=== PATIENT | male | born 1990 | race Caucasian/White ===

== ENCOUNTER 2018-02-21 21:11 | Emergency (ER) | payer MEDICAID, OTHER ==
[~2018-02-21] VITALS: Ht 188 cm; Wt 81.6 kg
[2018-02-21] VITALS (10 sets, daily range): BP systolic 102–138; BP diastolic 68–89
[2018-02-21] MEDS ORDERED: LORazepam Inj 2mg/ml 1ml IM ONE (21:45)
[2018-02-21] MEDS ORDERED: Haloperidol 5mg/ml Inj IM ONE (21:45)
[2018-02-21] MEDS ORDERED: DiphenhydrAMINE 50mg/ml Inj IM ONE (21:45)
[2018-02-21] MEDS ORDERED: D5W IVPB ONE (21:45)
[2018-02-21] MEDS ORDERED: Tetanus/Diptheria/Pertussis Vaccine 0.5ml Syr IM ONE (21:45)
[2018-02-21] MEDS ORDERED: DiphenhydrAMINE 50mg/ml Inj ONE (21:45)
[2018-02-21] MEDS ORDERED: HALOPERIDOL LACTATE IVPB ONE (21:45)
[2018-02-21] MEDS: LORazepam Inj 2mg/ml 1ml IV ONE ×2 (21:55→21:59)
--- NOTE | 2018-02-21 21:59 | Emergency Room Report ---
History of Present Illness General Chief Complaint: Behavioral Complaint Source: Patient (Berlin Negrete MD) Present Illness HPI Patient is a 27-year-old male brought in by EMS after increased agitation. The patient was noted to have some injuries to both forearms.The patient was noted to be markedly confused. The patient was brought in by EMS reportedly with alcohol use. (Berlin Negrete MD) Allergies: Coded Allergies: No Known Allergies (Unverified , 02/21/18) Patient History Past Medical History: see triage record Reviewed Nursing Documentation: PMH: Agreed; PSxH: Agreed (Berlin Negrete MD) Nursing Documentation-PMH Past Medical History: No Stated History (Berlin Negrete MD) Review of Systems All Other Systems: negative except mentioned in HPI (Berlin Negrete MD) Physical Exam Vital Signs Date Time Temp Pulse Resp B/P (MAP) Pulse Ox O2 Delivery O2 Flow Rate FiO2 02/21/18 20:59 98.7 62 16 132/77 98 Room Air 98.8 Sp02 EP Interpretation: reviewed, normal General Appearance: alert/responsive, no apparent distress, GCS 15, non-toxic Head: atraumatic Eyes: PERRL, lids + conjunctiva normal ENT: hearing intact, no angioedema Neck: supple/symm/no masses, no meningismus Respiratory: effort normal, no wheezing, chest symmetrical Cardiovascular: regular rate, rhythm, no edema Cardiovascular #2: 2+ carotid (R), 2+ carotid (L), 2+ dorsalis pedis (R), 2+ dorsalis pedis (L) Gastrointestinal: non-tender, no mass, non-distended, no rebound/guarding, normal bowel sounds Musculoskeletal: gait & station normal, strength & tone normal, normal ROM, non -tender Neurologic: normal inspection, CN II-XII intact, oriented x3, normal speech Psychiatric: other - delusions, bizzarre speech Skin: other - multiple superficial abrasions Lymphatic: normal inspection (Berlin Negrete MD) Medical Decision Making Restraint Attestation I, Berlin Negrete MD, have personally evaluated this patient. Laboratory tests have been reviewed and addressed accordingly. The patient is deemed to present a danger to themselves and/or others. This is based on the exam, history ( provided by patient, EMS/[facility] and/or family) and observed or reported behavior. Attempts for non-invasive measures have been considered and/or attempted, however, have been futile. It is in the best interest of the nursing staff, the patient, and others involved in this patient's care that behavioral restraints be applied. Patient evaluation reveals the following: Markedly physically agitated intermittently with thrashing, prior injuries to both extremities due to confusion (Berlin Negrete MD) Diagnostic Impression: Primary Impression: Substance abuse Additional Impressions: Dehydration Bipolar disorder Qualified Codes: F31.64 - Bipolar disorder, current episode mixed, severe, with psychotic features ER Course Patient is a 27-year-old male who presented after increased agitation and confusion. Patient was noted to have multiple abrasions to his arms. The patient was brought in by EMS. History is markedly limited by patient's mental status. Patient was noted to be markedly agitated and confused. The patient was placed in restraints. The patient is given medications for sedation due to agitation.The patient started on IV fluids.The patient appears to have been fairly agitated. The restrained released after patient was more calm.Patient was noted to have some improvement in his mental status. The patient was noted to have some bruising to the left side of his face as well as abrasions to both arms with unclear etiology. The patient's parents subsequent presented and provided additional history. The patient previously been noted to have history of bipolar disorder. He had previously been on lithium but had been noncompliant with his medications. Patient had been previously hospitalized in [place] and had been on Risperdal for short time as well as lithium and Xanax.The patient was given IV Depakote Labs Test 02/21/18 21:10 Urine Opiates Screen Negative (NEGATIVE) Urine Barbiturates Screen Negative (NEGATIVE) Phencyclidine (PCP) Screen Negative (NEGATIVE) Urine Amphetamines Screen Negative (NEGATIVE) Urine Benzodiazepines Screen Negative (NEGATIVE) Urine Cocaine Screen Negative (NEGATIVE) Urine Marijuana (THC) Screen Positive (NEGATIVE) (Berlin Negrete MD) ER Course See above note. Patient improved with treatment. Evaluated by PET team and placed on 5150. Awaiting placement. (Phillip Peraza M.D.) Reevaluation Time: 05:44 Last Vital Signs Date Time Temp Pulse Resp B/P (MAP) Pulse Ox O2 Delivery O2 Flow Rate FiO2 02/21/18 20:59 98.7 62 16 132/77 98 Room Air 98.8 Status: improved (Berlin Negrete MD) Status: improved (Phillip Peraza M.D.) Disposition: XFER TO PSYCH HOSP/UNIT Condition: Stable Berlin Negrete MD Feb 21, 2018 21:59 Phillip Peraza M.D. Feb 23, 2018 01:11
[2018-02-21] MEDS ORDERED: LORazepam Inj 2mg/ml 1ml IV ONE (23:00)
[2018-02-21 23:29] LABS: BASOPHILS % (AUTO) 1.1 % (0.0-2.0); EOSINOPHILS % (AUTO) 2.4 % (0.0-3.0); HEMATOCRIT 40.6 % (42.0-52.0); HEMOGLOBIN 14.3 G/DL (14.2-18.0); LYMPHOCYTES % (AUTO) 16.2 % (20.0-45.0); MEAN CORPUSCULAR VOLUME 88 FL (80-99); MONOCYTES % (AUTO) 9.4 % (1.0-10.0); NEUTROPHILS % (AUTO) 70.9 % (45.0-75.0); PLATELET COUNT 215 K/UL (150-450); RED BLOOD COUNT 4.62 M/UL (4.70-6.10); RED CELL DISTRIBUTION WIDTH 10.2 % (11.6-14.8)
[2018-02-21 23:37] LABS: ANION GAP 9 mmol/L (5-15); BLOOD UREA NITROGEN 15 mg/dL (7-18); CALCIUM 8.6 MG/DL (8.5-10.1); CARBON DIOXIDE 26 MMOL/L (21-32); CHLORIDE 102 MMOL/L (98-107); CREATININE 1.5 MG/DL (0.55-1.30); POTASSIUM 3.5 MMOL/L (3.5-5.1); SODIUM 137 MMOL/L (136-145)
[2018-02-21] MEDS ORDERED: Thiamine HCl 100 MG in D5W 55 ML IVPB ONE (23:45)
[2018-02-21 23:50] LABS: ALANINE AMINOTRANSFERASE 64 U/L (12-78); ALBUMIN 4.2 G/DL (3.4-5.0); ALBUMIN/GLOBULIN RATIO 1.2 (1.0-2.7); ALKALINE PHOSPHATASE 59 U/L (46-116); ASPARTATE AMINO TRANSFERASE 131 U/L (15-37); BILIRUBIN,TOTAL 0.9 MG/DL (0.2-1.0)
[2018-02-22] MEDS ORDERED: Valproate Sodium INJ 500 MG in D5W 55 ML IVPB ONE (01:15)
[2018-02-22 04:00] VITALS: BP 122/89
[2018-02-22 08:07] VITALS: BP 123/78
[2018-02-22] MEDS ORDERED: Haloperidol Decanoate 50mg Inj IM ONE (11:00)
[2018-02-22 12:00] VITALS: BP 131/77
[2018-02-22] MEDS ORDERED: LORazepam Inj 2mg/ml 1ml IM ONE (13:00)
[2018-02-22] MEDS ORDERED: Haloperidol 5mg/ml Inj IM ONE (13:00)
[2018-02-22] MEDS ORDERED: DiphenhydrAMINE 50mg/ml Inj IM ONE (13:00)
[2018-02-22 17:18] VITALS: BP 127/69
[2018-02-22 22:18] VITALS: BP 107/72
[2018-02-23] VITALS: BP 140/89
--- NOTE | 2018-02-24 23:07 | Consultation ---
History of Present Illness General Date patient seen: Feb 22, 2018 Chief Complaint: Behavioral Complaint Present Illness HPI 27-year-old male brought in by EMS after increased agitation. the pt has hx of bipolar d/o. the pt continued to be uncooperative and delusional not going home with parents and was agitated. the parents left and the pt was placed on 5150 and transferred to psych Allergies: Coded Allergies: No Known Allergies (Unverified , 02/21/18) Patient History Limited by: medical condition History Provided By: Patient, Medical Record, PMD Healthcare decision maker Resuscitation status Advanced Directive on File Review of Systems Psychiatric: Reports: prior hx, anxiety, depressed feelings, emotional problems Physical Exam General Appearance: no apparent distress, alert, confused, agitated Height (Feet): 6 Height (Inches): 2.00 Weight (Pounds): 180 Assessment/Plan Assessment/Plan Bipolar d/o 5150 transfer to psych Justus Winter MD Feb 24, 2018 23:07
== END 2018-02-23 ==
LOC: EDBD 21:11 → EMR 21:53
DX: F19.10 Other psychoactive substance abuse, uncomplicated (principal); E86.0 Dehydration; Z23 Encounter for immunization; S50.812A Abrasion of left forearm, initial encounter; S50.811A Abrasion of right forearm, initial encounter; S00.83XA Contusion of other part of head, initial encounter; X58.XXXA Exposure to other specified factors, initial encounter; Y92.9 Unspecified place or not applicable; F31.9 Bipolar disorder, unspecified
CPT/HCPCS: 36415; 80053; 80307; 80329; 82962; 85025; 90471; 90715; 96361; 96365; 96372; 96375; 99285; J1200; J1630; J1631; 96360; 96374